=== PATIENT | female | born 1995 | race Caucasian/White ===

== ENCOUNTER → 2018-05-30 | Outpatient (CLI) | payer OTHER ==
[~2018-05-30] MED LIST: ADVIL200 MG PO; CALCIUM 600 PLU1 TAB PO; FISH OIL1000 MG PO; KLONOPIN 0.5MG0.5 MG PO; MULTI VITAMINS1 TAB PO; PROVENTIL0.09 MG/A1 IH; PROZAC 20MG20 MG PO; SINGULAIR 110 MG/TAB PO; VOLTAREN SR25 MG/TAB PO; ZYRTEC 10MG10 MG PO
== END ==
LOC: LIGHT 08:42
DX: F32.9 Major depressive disorder, single episode, unspecified (principal); J45.909 Unspecified asthma, uncomplicated; E66.9 Obesity, unspecified; Z68.37 Body mass index [BMI] 37.0-37.9, adult; Z71.3 Dietary counseling and surveillance

== ENCOUNTER → 2018-06-12 | Outpatient (CLI) | payer OTHER | LOC: LIGHT 12:54 | DX: F32.9 Major depressive disorder, single episode, unspecified (principal); J45.909 Unspecified asthma, uncomplicated; E66.9 Obesity, unspecified; Z68.37 Body mass index [BMI] 37.0-37.9, adult; Z71.3 Dietary counseling and surveillance ==

== ENCOUNTER → 2018-06-14 | Outpatient (CLI) | payer OTHER ==
[~2018-06-14] VITALS: Ht 162.6 cm; Wt 97.5 kg
[2018-06-14 08:45] VITALS: BP 124/76; PULSE 80
== END ==
LOC: LIGHT 08:38
DX: F32.9 Major depressive disorder, single episode, unspecified (principal); J45.909 Unspecified asthma, uncomplicated; E66.9 Obesity, unspecified; Z68.36 Body mass index [BMI] 36.0-36.9, adult; Z71.3 Dietary counseling and surveillance
CPT/HCPCS: G0463

== ENCOUNTER → 2018-07-19 | Outpatient (CLI) | payer OTHER ==
[~2018-07-19] VITALS: Ht 162.6 cm; Wt 98.4 kg
[~2018-07-19] MED LIST changes: +PHENTERMINE15 MG PO
[2018-07-19 16:20] VITALS: BP 110/68; PULSE 76
== END ==
LOC: LIGHT 13:49
DX: F32.9 Major depressive disorder, single episode, unspecified (principal); J45.909 Unspecified asthma, uncomplicated; E66.9 Obesity, unspecified; Z71.3 Dietary counseling and surveillance

== ENCOUNTER → 2018-08-23 | Outpatient (CLI) | payer OTHER ==
[~2018-08-23] VITALS: Ht 162.6 cm; Wt 96.2 kg
[2018-08-23 10:50] VITALS: BP 116/66; PULSE 80
== END ==
LOC: LIGHT 08-16 10:54
DX: F32.9 Major depressive disorder, single episode, unspecified (principal); J45.909 Unspecified asthma, uncomplicated; E66.9 Obesity, unspecified; Z68.36 Body mass index [BMI] 36.0-36.9, adult; Z71.3 Dietary counseling and surveillance
CPT/HCPCS: G0463

== ENCOUNTER → 2018-11-15 | Outpatient (CLI) | payer OTHER ==
[~2018-11-15] VITALS: Ht 162.6 cm; Wt 94.6 kg
[2018-11-15 08:19] VITALS: BP 122/72; PULSE 81
[2018-11-15 08:40] VITALS: BP 122/76; PULSE 64
== END ==
LOC: LIGHT 08:01
DX: F32.9 Major depressive disorder, single episode, unspecified (principal); J45.909 Unspecified asthma, uncomplicated; E66.9 Obesity, unspecified; Z68.35 Body mass index [BMI] 35.0-35.9, adult; Z71.3 Dietary counseling and surveillance
CPT/HCPCS: G0463

== ENCOUNTER → 2019-02-19 | Outpatient (CLI) | payer OTHER ==
[~2019-02-19] VITALS: Ht 162.6 cm; Wt 96.2 kg
[2019-02-19 14:55] VITALS: BP 112/62; PULSE 98
== END ==
LOC: LIGHT 12-20 10:24
DX: F32.9 Major depressive disorder, single episode, unspecified (principal); J45.909 Unspecified asthma, uncomplicated; E66.9 Obesity, unspecified; Z68.36 Body mass index [BMI] 36.0-36.9, adult; Z71.3 Dietary counseling and surveillance
CPT/HCPCS: G0463